=== PATIENT | male | born 1985 | race African-American/Black ===

== ENCOUNTER 2019-11-12 16:41 | Emergency (ER) | payer OTHER ==
[~2019-11-12] VITALS: Ht 172.7 cm; Wt 77.1 kg
== END 2019-11-12 19:40 | disposition home or self-care (01) ==
LOC: ER 16:41
DX: S43.492A Other sprain of left shoulder joint, initial encounter (principal); X50.0XXA Overexertion from strenuous movement or load, initial encounter; Y93.89 Activity, other specified; Y92.89 Other specified places as the place of occurrence of the external cause; Y99.8 Other external cause status

== ENCOUNTER → 2020-04-28 | Emergency (ER) | payer OTHER ==
[~2020-04-28] VITALS: Ht 165.1 cm; Wt 49.4 kg
[~2020-04-28] MED LIST: BENADRYL ALLERG25 MG PO; CORTISONE60 GM TOP
== END | disposition home or self-care (01) ==
LOC: ER 07:37 → EMR PED 07:41 → ER 07:41
DX: L50.8 Other urticaria (principal); L30.8 Other specified dermatitis